=== PATIENT | male | born 1955 | race Two or more races ===

== ENCOUNTER 2023-09-05 16:11 | Emergency (ER) | payer OTHER ==
[~2023-09-05] VITALS: Ht 172.7 cm; Wt 68.9 kg
[2023-09-05 16:16] VITALS: TEMP 98.7
[2023-09-05 16:58] LABS: BASOPHILS % (AUTO) 0.2 % (0.0-2.0); EOSINOPHILS % (AUTO) 0.1 % (0.0-6.0); HEMATOCRIT 36 % (39-51); HEMOGLOBIN 12.5 g/dL (13.5-17.5); LYMPHOCYTES # (AUTO) 0.4 K/uL (0.8-4.8); MEAN CORPUSCULAR HEMOGLOBIN 30 PG (26.0-33.0); MEAN CORPUSCULAR HGB CONC 35 g/dl (31.0-36.0); MEAN CORPUSCULAR VOLUME 87 fL (80-96); MONOCYTES # (AUTO) 0.3 K/uL (0.1-1.30); MONOCYTES % (AUTO) 4.2 % (2.0-12.0); NEUTROPHILS # (AUTO) 6.4 K/uL (1.8-8.9); NEUTROPHILS % (AUTO) 89.5 % (43.0-81.0); PLATELET COUNT (AUTO) 165 K/uL (150-450); RED BLOOD CELL COUNT(AUTO) 4.16 MIL/uL (4.5-6.0); RED CELL DISTRIBUTION WIDTH 14.4 % (11.5-15.0); WHITE BLOOD COUNT (AUTO) 7.2 K/uL (4.3-11.0)
[2023-09-05] MEDS: ACETAMINOPHEN ES 500 MG TABLET PO ONE (17:00)
[2023-09-05] MEDS: IV NS 0.9% 1,000 ML BAG IV ONE ×2 (17:00)
[2023-09-05] MEDS ORDERED: ACETAMINOPHEN ES 500 MG TABLET ONE (17:08)
[2023-09-05 17:09] LABS: INR 0.98 (0.91-1.10); PROTHROMBIN TIME 10.1 SECS (9.2-11.1)
[2023-09-05 17:13] LABS: CALCIUM, SERUM 8.8 mg/dL (8.5-10.1); CARBON DIOXIDE 26 mmol/L (21-32); CHLORIDE 108 mmol/L (98-107); CREATININE 1.2 mg/dL (0.6-1.3); GLUCOSE 160 mg/dL (74-106); POTASSIUM 3.7 mmol/L (3.5-5.1); SODIUM SERUM 141 mmol/L (136-145); UREA NITROGEN, BLOOD 12 mg/dL (7-18)
[2023-09-05] MEDS: CEFEPIME 1 GM in IV D5W 50 ML IV ONE (17:18)
[2023-09-05 17:19] LABS: ALANINE AMINOTRANSFERASE 15 U/L (12-78); ALBUMIN 3.1 g/dL (3.4-5.0); ALKALINE PHOSPHATASE 103 U/L (46-116); ASPARTATE AMINOTRANSFERASE 11 U/L (15-37); BILIRUBIN,DIRECT 0.2 mg/dL (0.0-0.2); BILIRUBIN,TOTAL 0.6 mg/dL (0.2-1.0); TOTAL PROTEIN, SERUM 7.2 g/dL (6.4-8.2)
[2023-09-05 17:22] LABS: LACTIC ACID 3.2 mmol/L (0.4-2.0)
[2023-09-05 17:38] LABS: APPEARANCE,URINE Clear (CLEAR); BILIRUBIN,URINE Negative (NEGATIVE); BLOOD, URINE Negative Ery/uL (NEGATIVE); COLOR,URINE YELLOW (YELLOW); KETONES,URINE Negative (NEGATIVE); LEUKOCYTE ESTERASE ,URINE Trace (NEGATIVE); NITRITE, URINE Negative (NEGATIVE); PH,URINE 5.5 (5.0-8.0); PROTEIN,URINE Negative (NEGATIVE); UGLUCOSE Negative (NEGATIVE)
[2023-09-05 17:39] LABS: ADD URINE CULTURE NO; BACTERIA,URINE Few /HPF (None Seen); RBC,URINE 0-2 /HPF (0-2); SQUAMOUS EPITHELIAL CELL,UR Few /HPF (None Seen)
[2023-09-05] MEDS ORDERED: VANCOMYCIN 1 GM /D5W 250 ML PB IV ONE (17:46)
[2023-09-05] MEDS: VANCOMYCIN 1 GM in IV D5W 250 ML IV ONE (17:50)
[2023-09-05 18:00] VITALS: BP 107/88; O2SAT 99
== END 2023-09-05 23:15 | disposition short-term general hospital (02) ==
LOC: ER 16:15
DX: A41.9 Sepsis, unspecified organism (principal); R65.20 Severe sepsis without septic shock; J96.01 Acute respiratory failure with hypoxia; J18.9 Pneumonia, unspecified organism; F03.90 Unspecified dementia, unspecified severity, without behavioral disturbance, psychotic disturbance, mood disturbance, and anxiety; R74.02 Elevation of levels of lactic acid dehydrogenase [LDH]; Y95 Nosocomial condition
CPT/HCPCS: 99291; 96365; 96367; 93005; 82803; 71045; 84145; 85025; 80048; 87040 ×2; 87086; 83605 ×2; 80076; 81001; 36415; 84484 ×2; 85730; 83880; 36600; J3370 ×2; J7060; J7030 ×2; J0692